=== PATIENT | female | born 1960 | race Caucasian/White ===

== ENCOUNTER 2018-09-28 10:10 | Emergency (ER) | payer OTHER ==
[~2018-09-28] VITALS: Ht 167.6 cm; Wt 67.9 kg
[2018-09-28 10:18] VITALS: BP 103/70
--- NOTE | 2018-09-28 10:53 | PHYS DOC ---
Past History Past Medical History: Diabetes, Other Past Surgical History: Cholecystectomy, Tubal ligation, Other Alcohol Use: None Drug Use: None Adult General Chief Complaint Chief Complaint: ELBOW PROBLEM [facility] HPI 57-year-old female presents with right elbow pain. The patient was doing fairly 100 yesterday or today. Today, she went to [employer]pler pickup a large bile that was about 4 inches thick of solid paper and she had a sudden popping sensation in her right lateral elbow followed by pain. The patient was unable to lift any more vials rest of the day. It even hurts to write. The patient went home and took ibuprofen and try ice and heat. He seemed to help a little bit. She was concerned this morning and she had pain that was just as bad as yesterday. 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 She denies any other injuries or complaints. Review of Systems Review of Systems Constitutional: Denies fever or chills [] Eyes: Denies change in visual acuity, redness, or eye pain [] HENT: Denies nasal congestion or sore throat [] Respiratory: Denies cough or shortness of breath [] Cardiovascular: No additional information not addressed in HPI [] GI: Denies abdominal pain, nausea, vomiting, bloody stools or diarrhea [] : Denies dysuria or hematuria [] Musculoskeletal: Right lateral elbow pain[] Integument: Denies rash or skin lesions [] Neurologic: Denies headache, focal weakness or sensory changes [] Endocrine: Denies polyuria or polydipsia [] All other systems were reviewed and found to be within normal limits, except as documented in this note. Allergies Allergies Allergies Coded Allergies Type Severity Reaction Last Updated Verified Tetanus Vaccines and Toxoid Allergy Unknown 09/28/18 Yes aspartame Allergy Unknown 09/28/18 Yes Uncoded Allergies Type Severity Reaction Last Updated Verified statins Allergy Unknown 09/28/18 Physical Exam Physical Exam Constitutional: Well developed, well nourished, no acute distress, non-toxic appearance. [] HENT: Normocephalic, atraumatic, bilateral external ears normal, oropharynx moist, no oral exudates, nose normal. [] Eyes: PERRLA, EOMI, conjunctiva normal, no discharge. [] Neck: Normal range of motion, no tenderness, supple, no stridor. [] Cardiovascular:Heart rate regular rhythm, no murmur [] Lungs & Thorax: Bilateral breath sounds clear to auscultation [] Abdomen: Bowel sounds normal, soft, no tenderness, no masses, no pulsatile masses. [] Skin: Warm, dry, no erythema, no rash. [] Back: No tenderness, no CVA tenderness. [] Extremities: Tenderness over the right lateral upper condyle the elbow, no obvious deformity or ecchymosis.[] Neurologic: Alert and oriented X 3, normal motor function, normal sensory function, no focal deficits noted. [] Psychologic: Affect normal, judgement normal, mood normal. [] Current Patient Data Vital Signs Vital Signs Date Time Temp Pulse Resp B/P (MAP) Pulse Ox O2 Delivery O2 Flow Rate FiO2 09/28/18 10:18 98.0 87 18 97 Room Air EKG EKG [] Radiology/Procedures Radiology/Procedures [] Course & Med Decision Making Course & Med Decision Making Pertinent Labs and Imaging studies reviewed. (See chart for details) The patient appears to have acute lateral epicondylitis. I have advised conservative therapy of NSAIDs, ice, and a tennis elbow strap. The patient will try to modify her activities to rest the area. She will follow up with her primary care physician as needed. [] Dragon Disclaimer Dragon Disclaimer This electronic medical record was generated, in whole or in part, using a voice recognition dictation system. Departure Departure: Impression: Primary Impression: Lateral epicondylitis of right elbow Disposition: 01 HOME, SELF-CARE Condition: STABLE Referrals: RADHA FELIPE (PCP) Patient Instructions: Epicondylitis, Lateral (Tennis Elbow) with Rehab- [facility] CHERRI PATEL DO Sep 28, 2018 10:53
--- NOTE | 2018-09-28 11:08 | RAD ---
3 view study of the right elbow Clinical indications: [place] popping noise when pulling a drawer. Tingling and burning in the right elbow. Limited mobility. FINDINGS: No joint effusion is seen. No acute fracture or dislocation or lytic process is evident. No significant arthritic change is seen. No soft tissue swelling of the olecranon bursa is evident. IMPRESSION: No acute osseous abnormality. Electronically signed by: All Mota MD (09/28/2018 11:05 AM) [id number]
== END 2018-09-28 11:20 | disposition home or self-care (01) ==
LOC: ER 10:10
DX: M77.11 Lateral epicondylitis, right elbow (principal); E11.9 Type 2 diabetes mellitus without complications; Z88.7 Allergy status to serum and vaccine; Z88.8 Allergy status to other drugs, medicaments and biological substances
CPT/HCPCS: 73080; 99284

== ENCOUNTER 2018-11-04 16:37 | Emergency (ER) | payer OTHER ==
[~2018-11-04] VITALS: Ht 167.6 cm; Wt 68.0 kg
[2018-11-04 16:45] VITALS: BP 140/76
--- NOTE | 2018-11-04 17:17 | PHYS DOC ---
Past History Past Medical History: Diabetes, Hypertension Past Surgical History: Cholecystectomy, Other Alcohol Use: None Drug Use: None Adult General Chief Complaint Chief Complaint: ANKLE PROBLEM HPI HPI Patient is a 57 year old female who presents with complaint of right ankle and foot pain. Patient states that she accidentally stumbled and rolled her ankle while carrying boxes in her home approximately 1430. States that there was water on the floor that she stepped in, causing her to slip. States that she was able to get up and bear weight on the right leg after the fall but states that it has started to swell up and become more painful. Has been using ice to help with pain. Notes pain along the lateral aspect of the ankle and towards the heel. Denies any other serious injuries. Review of Systems Review of Systems Constitutional: Denies fever or chills [] Eyes: Denies change in visual acuity, redness, or eye pain [] HENT: Denies nasal congestion or sore throat [] Respiratory: Denies cough or shortness of breath [] Cardiovascular: Denies chest pain or edema[] GI: Denies abdominal pain, nausea, vomiting, bloody stools or diarrhea [] : Denies dysuria or hematuria [] Musculoskeletal: Right ankle and foot pain[] Integument: Denies rash or skin lesions [] Neurologic: Denies headache, focal weakness or sensory changes [] All other systems were reviewed and found to be within normal limits, except as documented in this note. Allergies Allergies Allergies Coded Allergies Type Severity Reaction Last Updated Verified Tetanus Vaccines and Toxoid Allergy Unknown 09/28/18 Yes aspartame Allergy Unknown 09/28/18 Yes Uncoded Allergies Type Severity Reaction Last Updated Verified statins Allergy Unknown 09/28/18 Physical Exam Physical Exam Constitutional: Well developed, well nourished, no acute distress, non-toxic appearance. [] HENT: Normocephalic, atraumatic, bilateral external ears normal, oropharynx moist, no oral exudates, nose normal. [] Eyes: PERRLA, EOMI, conjunctiva normal, no discharge. [] Neck: Normal range of motion, no tenderness, supple, no stridor. [] Cardiovascular:Heart rate regular rhythm, no murmur [] Lungs & Thorax: Bilateral breath sounds clear to auscultation [] Abdomen: Bowel sounds normal, soft, no tenderness, no masses, no pulsatile masses. [] Skin: Warm, dry, no erythema, no rash. [] Back: No tenderness, no CVA tenderness. [] Extremities: Tenderness and swelling along right lateral malleolus, no pain over the Achilles tendon, tenderness over lateral calcaneus, right knee exam normal. [] Neurologic: Alert and oriented X 3, normal motor function, normal sensory function, no focal deficits noted. [] Current Patient Data Vital Signs Vital Signs Date Time Temp Pulse Resp B/P (MAP) Pulse Ox O2 Delivery O2 Flow Rate FiO2 11/04/18 16:45 98.8 73 20 96 Room Air Lab Results Not performed EKG EKG Not performed[] Radiology/Procedures Radiology/[place] [address] IMAGING REPORT Signed PATIENT: MAGY ROGERS ACCOUNT: [id number] : 1960 LOCATION: ER AGE: 57 SEX: F EXAM STATUS: REG ER ORD. PHYSICIAN: LEODAN WALKER MD REASON: right ankle and foot injury today, lateral side pain PROCEDURE: FOOT RIGHT 3V ANKLE RIGHT 3V, FOOT RIGHT 3V History: Right-sided ankle injury today with lateral side pain Comparison: None. Findings: Right foot: 3 views the right foot are submitted. There is metallic plate and screws traversing the first metatarsal-phalangeal joint which is at least partially fused, also fusion with adjacent sesamoid. There is a single long screw traversing the second proximal interphalangeal joint which is fused. There is widening of the second and third metatarsal phalangeal joints with mild erosive changes greatest of the second metatarsal. Fifth distal interphalangeal joint is fused. No acute fracture is identified. There is small plantar calcaneal enthesophyte. Right ankle: 3 views of the right ankle are submitted. Tibiotalar joint space is maintained. No acute fracture or dislocation is identified. Impression: 1. No acute fracture is identified of the right foot or the right ankle. 2. There are postoperative findings of the right foot as described. There is widening of the second and third metatarsal-phalangeal joints with mild erosive changes greatest of the second metatarsal, may be more chronic although otherwise difficult to characterize without previous exam for comparison. Electronically signed by: Ben Elliott MD (11/04/2018 5:18 PM) [facility] DICTATED AND SIGNED BY: BEN ELLIOTT MD DATE: 11/04/18 1718 CC: RADHA FELIPE; LEODAN WALKER MD ~ [] Course & Med Decision Making Course & Med Decision Making Pertinent Labs and Imaging studies reviewed. (See chart for details) X-rays show no evidence of acute fracture. Symptoms appear consistent with sprain. Treated with Feliberto wrap and crutches in the emergency department. Advised RICE therapy at home with recommended follow-up with primary doctor in 1 week for reevaluation. Advised return to emergency department for any worsening symptoms. Patient voiced understanding and in agreement with treatment plan.[] Dragon Disclaimer Dragon Disclaimer This electronic medical record was generated, in whole or in part, using a voice recognition dictation system. Departure Departure: Impression: Primary Impression: Sprain of right ankle Disposition: HOME, SELF-CARE Condition: IMPROVED Referrals: RADHA FELIPE (PCP) Patient Instructions: Ankle Sprain, RICE - Routine Care for Injuries Additional Instructions: Follow-up with your primary doctor in 1 week for reevaluation. Return to the emergency department for any worsening symptoms. Problem Qualifiers Primary Impression: Sprain of right ankle Encounter type: initial encounter Involved ligament of ankle: unspecified ligament Qualified Codes: S93.401A - Sprain of unspecified ligament of right ankle, initial encounter LEODAN WALKER MD November 04, 2018 17:17
--- NOTE | 2018-11-04 17:21 | RAD ---
ANKLE RIGHT 3V, FOOT RIGHT 3V History: Right-sided ankle injury today with lateral side pain Comparison: None. Findings: Right foot: 3 views the right foot are submitted. There is metallic plate and screws traversing the first metatarsal-phalangeal joint which is at least partially fused, also fusion with adjacent sesamoid. There is a single long screw traversing the second proximal interphalangeal joint which is fused. There is widening of the second and third metatarsal phalangeal joints with mild erosive changes greatest of the second metatarsal. Fifth distal interphalangeal joint is fused. No acute fracture is identified. There is small plantar calcaneal enthesophyte. Right ankle: 3 views of the right ankle are submitted. Tibiotalar joint space is maintained. No acute fracture or dislocation is identified. Impression: 1. No acute fracture is identified of the right foot or the right ankle. 2. There are postoperative findings of the right foot as described. There is widening of the second and third metatarsal-phalangeal joints with mild erosive changes greatest of the second metatarsal, may be more chronic although otherwise difficult to characterize without previous exam for comparison. Electronically signed by: Jeison Peña MD (11/04/2018 5:18 PM) [facility]
== END 2018-11-04 17:40 | disposition home or self-care (01) ==
LOC: ER 16:37
DX: S93.401A Sprain of unspecified ligament of right ankle, initial encounter (principal); E11.9 Type 2 diabetes mellitus without complications; I10 Essential (primary) hypertension; Z88.7 Allergy status to serum and vaccine; Z88.8 Allergy status to other drugs, medicaments and biological substances; W22.8XXA Striking against or struck by other objects, initial encounter; Y93.89 Activity, other specified; Y92.89 Other specified places as the place of occurrence of the external cause; Y99.8 Other external cause status
CPT/HCPCS: 73610; 73630; 99284